=== PATIENT | female | born 1980 | race Caucasian/White ===

== ENCOUNTER 2017-11-21 18:02 | Emergency (ER) | payer OTHER ==
--- OUTSIDE RECORDS SUMMARY | 2017-11-21 21:00 | XMS REPORT ---
:1980 External Reference #:[id number] Author Organization [facility] Address [address] [place] [address] Phone [phone] Care Team Providers Name Role Phone Jose L Simon M.D. Care Team Information Vehicle Inspector Unavailable Payers Type Date Identification Payment Subscriber Numbers Provider Health Maintenance Expires: Policy Number: Naldo Ace [facility] ([facility]) 10/21/2011 [id number] Option PayID: [id number] [address] [address] [place] [address] Health Maintenance Effective: Policy Number: Naldo Pandya [email or web address] ([facility]) 04/20/2012 [id number] Option Malka Expires: 01/18/2016 PayID: [id number] [address] [address] [place] [address] Commercial Effective: Policy Number: Gildardo [facility] Gini Ace 01/20/2016 [id number] Medicaid Expires: 10/20/2016 PayID: [id number] [address] [place] [address] Problems Description No Information Family History Date Family Member(s) Problem(s) Comments Father 62 as of 03/07/2009 Father Hypothyroid Father Obesity Father Hypertension : (age 54 Mother due to Aneurysm cerebral Years) Mother Non Contributory First Son Asthma Second Son Asthma Siblings 7 First Brother Obesity First Brother Kidney Stones Second Brother Obesity First Sister Asthma Paternal Grandfather due to SD () Paternal Grandmother Stroke Maternal Grandfather due to Cancer, () Lung Maternal Grandmother due to SD () - in her 70's, possible ruptured cerebral aneurysm Social History Type Date Description Comments Order Youngest of 6 Lives With Spouse Lives With Sons 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 Abuse No history of abuse Cigarette Use Never Smoked Cigarettes ETOH Use Drinks about twice a year. Exercise Type/Frequency Exercises regularly. Walking at least one with son mile. Some joging, sports Allergies, Adverse Reactions, Alerts Date Description Reaction Status Severity Comments 01/13/2009 Bactrim active rash on legs, itching 03/29/2005 NKDA inactive Medications Medication Date Status Form Strength Qnty SIG Indications Ordering Provider Cephalexin 11/08 Active Capsules 500mg 30cap take 1 N61.0 Isi s capsule by Shortle, mouth 3 [employer] times a day for 10 days for infection Folic Acid 05/22 Active Tablets 1mg 1 po qd Jenn Simon B Complex 05/22 Active Capsules Jenn Simon Dicloxacillin 11/08 Hx Capsules 500mg 40cap Take 1 N61.0 Isi s capsule by Shortle, - mouth every [employer] 11/08 6 hours for 10 days To Whom It February 21 Hx Gini is currently [place], - and Jenn 03/01 has been advised not to travel to an area with Zika virus Meclizine HCL 11/11 Hx Tablets 12.5mg 60tab 1-2 tid prn 386.10 Gary Lo M.D. 01/10 Amoxicillin 10/26 Hx Tablets 875mg 20tab 1 tablet bid s x 10 days Emmett, - [employer]C 11/05 10/01 Hx Tablets 0.8mg 30tab 1 po qd Gary Lo M.D. 11/03 Diflucan 04/16 Hx Tablets 150mg 1tabs 150mg po once, february Madeline Parker, - repeat in [employer] 09/30 one week needed for yeast infection Ceftin 04/13 Hx Tablets 500mg 20tab 1 po bid for 034.0 s 10 days for Madeline Parker, - infection [employer] 09/30 Amoxicillin 03/24 Hx Suspension 250mg/5ML 300cc 10 cc po tid 034.0 Rec for 10 days Saira Chavez, 04/13 M.D. Penicillin V 06/20 Hx Tablets 500mg 30tab 1 po tid for 463 Shawnti Potassium s tonsillitis Madeline Parker, - [employer]-C 06/30 Zithromax 12/29 Hx Tablets 500mg 3Tabs 1 po daily 461.0 Greenwoodnt Tri-Cornel for three Madeline Parker, - days, february [facility] 04/12 repeat in days if not effective Erythromycin 09/24 Hx Ointment 5mg/GM 3.500 apply small 373.12 gm ribbon ou up [place], - to 3x/day M.D. 10/24 (opthalmic oint)x 1 month or until discharge clears Ortho 06/22 Hx Tablets 30tab 1 po qd V72.31 Shawnti Tri-Cyclen s EliaBrandon Parker, - [facility] 09/30 Ortho Micronor 03/07 Hx Tablets 0.35mg 28tab 1 po qd (at V72.31 s the same [place], - time of day) M.D. 06/22 Diflucan 09/06 Hx Tablets 150mg 1tabs 150mg po once, february Madeline Keith, - repeat in [facility]- 04/16 one week needed for yeast infection Violet 08/06 Hx Tablets 3-0.02mg 1Mont Take One V72.31 h Pill PO qd Aurroa, - as Directed M.D. 03/07 Levaquin 04/10 Hx Tablets 500mg 10tab one qd x10 382.02 s days Saira Chavez, 08/06 M.D. /2007 Amoxicillin 04/06 Hx Capsules 500mg 10cap 1 tid X 10 s Days (dose [place], - increase, M.D. 04/10 has for bid already)) Meclizine HCL 04/06 Hx Tablets 12.5mg 30tab 1-2 tid prn s [place] - Hector.DBrandon 07/05 Vicodin 04/06 Hx Tablets 5-500mg 25tab 1/2 - 2 q4h s prn Gary Simon.DBrandon 07/05 Cortisporin 04/03 Hx Suspension 1% Otic 10ml 5 gtts otic tid-qid prn Gary Simon M.DBrandon 07/02 09/26 Hx 30uni 1 po qd (february Multivitamins ts dispense [place], - generic) M.D. 08/06 Keflex 06/04 Hx Capsules 500mg 20cap One PO bid 706.2 Jennie s For 10 Days A. - Jong, 03/18 F.N.P.C. /2006 Amoxicillin 04/11 Hx Tablets 500mg 30tab 1 po tid 461.0 Gary Lo M.D. 07/10 Robitussin A-c 04/11 Hx Syrup 100mg;10m 50cc One TSP PO 461.0 g/5ML QHS prn [place], - Cough, Up To M.D. 07/10 Q 6HRS prn - Causes Drowsiness Lotrisone 11/14 Hx Cream 0.05%;1 % 45gm apply to 692.9 rash bid Gary Simon M.DBrandon 08/06 Lac-Hydrin 11/14 Hx Cream 12% 140gm apply to dry skin qd Gary Simon M.D. 09/24 Ciprofloxacin 11/07 Hx Solution 0.3% 2.5ml 2 gtts Q4H Ophthalmic Gary Simon.DBrandon 12/07 Penicillin VK 09/17 Hx Tablets 500mg 30tab one tablet 462 Patrice J. /2004 s three times Mariee, - daily for M.D. 11/07 ten days. Effexor XR 07/03 Hx Capsules 150mg 30cap 1 po qd Gary Lo M.D. 03/18 Xenical 07/03 Hx Capsules 120mg 90cap 1 po tid s Gary Simon M.D. 10/02 Effexor XR 05/09 Hx Capsules 75mg 30cap 1 po qd belkys Gary SimonDBrandon 07/03 Alesse 28 03/29 Hx Pack 3pack 1 qd V72.31 Gary Simon MBrandonDBrandon 03/18 Triamcinolone 03/29 Hx Cream 0.1% 30G apply to 692.9 affected [place] - area bid M.D. 11/14 Micronor Hx Tablets 0.35mg 1Pack 1 po qd Unknown /0000 - 04/25 Medications Administered in Office Medication Date Status Form Strength Qnty SIG Indications Ordering Provider TB,Intradermal Administered Injection Lab and (PPD, [place]) 013 Office Services TB,Intradermal Administered Injection Lab and (PPD, [place]) 010 Office Services TB,Intradermal Administered Injection Jose L Simon, (PPD, [place]) 009 M.D. TB,Intradermal Administered Injection Jose L Simon, (PPD, [place]) 007 M.D. Immunizations CPT Code Status Date Vaccine Lot # [id number] Given 08/05/2013 Influenza Vaccine-Preservative Free 3 Yrs And [id number] Above 00628 Given 05/28/2013 Tdap (Adacel) 77739 Given 08/12/2012 Influenza Vaccine-Preservative Free 3 Yrs And [id number] Above 20581 Given 08/31/2011 Influenza Vaccine-Preservative Free 3 Yrs And [id number] Above 50886 Given 07/31/2010 Influenza Vaccine-Preservative Free 3 Yrs And Above 62342 Given 07/31/2010 Influenza Vaccine-Preservative Free 3 Yrs And [id number] Above 81024 Given 08/15/2009 Influenza Vaccine-Preservative Free 3 Yrs And [id number] Above 21998 Given 08/06/2008 Influenza Virus Vaccine, 3 Yrs And Above [id number] 50327 Given 09/04/2007 Influenza Virus Vaccine, 3 Yrs And Above [id number] 69316 Given 03/29/2005 Decavac(DT, Adult) 23767 Given 03/29/2005 DT (Adult) Vital Signs Date Vital Result Comment 11/08/2017 Weight 233.00 lb Weight in kg's 105.689 BP Systolic 110 mmHg BP Diastolic 70 mmHg Heart Rate 80 /min Body Temperature 97.6 F Respiratory Rate 14 /min 04/09/2016 Weight 216.00 lb Weight in kg's 97.978 BP Systolic 110 mmHg BP Diastolic 58 mmHg Heart Rate 68 /min 11/11/2013 Weight 216.00 lb Weight in kg's 97.978 BP Systolic 120 mmHg BP Diastolic 68 mmHg Heart Rate 84 /min Body Temperature 97.7 F 11/05/2013 Weight 214.00 lb Weight in kg's 97.070 BP Systolic 122 mmHg BP Diastolic 76 mmHg Heart Rate 72 /min Height 66.5 inches 5'6.50" BMI (Body Mass Index) 34.0 kg/m2 10/26/2013 Weight 217.00 lb Weight in kg's 98.431 BP Systolic 100 mmHg BP Diastolic 66 mmHg Heart Rate 88 /min Body Temperature 97.7 F 10/01/2012 Weight 209.00 lb Weight in kg's 94.802 BP Systolic 112 mmHg BP Diastolic 76 mmHg Heart Rate 76 /min 04/13/2011 Weight 182.00 lb Weight in kg's 82.555 BP Systolic 130 mmHg BP Diastolic 70 mmHg Heart Rate 64 /min Body Temperature 97.7 F 03/24/2011 Weight 180.00 lb Weight in kg's 81.648 BP Systolic 90 mmHg BP Diastolic 70 mmHg Heart Rate 98 /min Body Temperature 97.2 F 06/20/2010 Weight 185.00 lb Weight in kg's 83.916 BP Systolic 114 mmHg BP Diastolic 74 mmHg Heart Rate 80 /min Body Temperature 98.9 F 12/29/2009 Weight 198.00 lb Weight in kg's 89.813 BP Systolic 110 mmHg BP Diastolic 74 mmHg Heart Rate 60 /min Body Temperature 97.9 F O2 % BldC Oximetry 98 % At Room Air 09/24/2009 Weight 185.00 lb Weight in kg's 83.916 BP Systolic 114 mmHg BP Diastolic 80 mmHg Heart Rate 76 /min 06/22/2009 Weight 178.00 lb Weight in kg's 80.741 BP Systolic 110 mmHg BP Diastolic 70 mmHg Heart Rate 76 /min Respiratory Rate 18 /min 05/03/2009 Weight 177.00 lb Weight in kg's 80.287 BP Systolic 100 mmHg BP Diastolic 62 mmHg Heart Rate 68 /min Last Menstrual Period [id number] 01/13/2009 Weight 180.00 lb Weight in kg's 81.648 BP Systolic 110 mmHg BP Diastolic 74 mmHg Heart Rate 76 /min 11/18/2008 BP Systolic 122 mmHg BP Diastolic 80 mmHg Heart Rate 78 /min Body Temperature 97.4 F 09/06/2008 Weight 198.00 lb Weight in kg's 89.813 BP Systolic 106 mmHg BP Diastolic 64 mmHg Heart Rate 72 /min Height 66.5 inches 5'6.50" BMI (Body Mass Index) 31.5 kg/m2 08/06/2008 Weight 210.00 lb Weight in kg's 95.256 BP Systolic 120 mmHg BP Diastolic 70 mmHg Heart Rate 64 /min Height 66.5 inches 5'6.50" BMI (Body Mass Index) 33.4 kg/m2 Last Menstrual Period [id number] 04/10/2008 Weight 215.00 lb Weight in kg's 97.524 BP Systolic 112 mmHg BP Diastolic 64 mmHg Body Temperature 98.1 F Height 66.3 inches 5'6.30" BMI (Body Mass Index) 34.4 kg/m2 04/06/2008 Weight 212.00 lb Weight in kg's 96.163 BP Systolic 120 mmHg BP Diastolic 74 mmHg Heart Rate 76 /min Body Temperature 98.7 F Height 66.3 inches 5'6.30" BMI (Body Mass Index) 33.9 kg/m2 04/03/2008 Weight 214.00 lb Weight in kg's 97.070 BP Systolic 104 mmHg BP Diastolic 70 mmHg Heart Rate 56 /min Body Temperature 97.9 F Height 66.3 inches 5'6.30" BMI (Body Mass Index) 34.2 kg/m2 01/16/2008 Weight 208.00 lb Weight in kg's 94.349 BP Systolic 120 mmHg BP Diastolic 84 mmHg Heart Rate 82 /min Body Temperature 98.6 F Height 66.3 inches 5'6.30" BMI (Body Mass Index) 33.3 kg/m2 01/01/2008 Weight 210.00 lb Weight in kg's 95.256 BP Systolic 120 mmHg BP Diastolic 60 mmHg Body Temperature 98.6 F Height 66.3 inches 5'6.30" BMI (Body Mass Index) 33.6 kg/m2 05/31/2007 BP Systolic 118 mmHg BP Diastolic 70 mmHg Heart Rate 60 /min Body Temperature 98.7 F Oral Height 66.3 inches 5'6.30" 03/14/2007 Weight 208.00 lb Weight in kg's 94.349 BP Systolic 130 mmHg BP Diastolic 60 mmHg Heart Rate 80 /min Body Temperature 97.6 F Height 66.3 inches 5'6.30" BMI (Body Mass Index) 33.3 kg/m2 06/04/2006 Weight 186.00 lb Weight in kg's 84.370 BP Systolic 98 mmHg BP Diastolic 64 mmHg Body Temperature 98.2 F Height 66.3 inches 5'6.30" BMI (Body Mass Index) 29.7 kg/m2 04/11/2006 Weight 191.00 lb Weight in kg's 86.638 BP Systolic 110 mmHg BP Diastolic 68 mmHg Heart Rate 64 /min Body Temperature 97.4 F Height 66.3 inches 5'6.30" BMI (Body Mass Index) 30.5 kg/m2 03/27/2006 Weight 190.31 lb Weight in kg's 86.326 BP Systolic 108 mmHg BP Diastolic 70 mmHg Height 66.3 inches 5'6.30" BMI (Body Mass Index) 30.4 kg/m2 03/07/2006 Weight 194.00 lb Weight in kg's 87.998 BP Systolic 124 mmHg BP Diastolic 64 mmHg Height 66.3 inches 5'6.30" BMI (Body Mass Index) 31.0 kg/m2 02/07/2006 Weight 193.00 lb Weight in kg's 87.545 BP Systolic 120 mmHg BP Diastolic 80 mmHg Body Temperature 98.6 F Height 66.3 inches 5'6.30" BMI (Body Mass Index) 30.9 kg/m2 01/01/2006 Weight 195.00 lb Weight in kg's 88.452 BP Systolic 110 mmHg BP Diastolic 74 mmHg Height 66.3 inches 5'6.30" BMI (Body Mass Index) 31.2 kg/m2 11/14/2005 Weight 203.00 lb Weight in kg's 92.081 BP Systolic 118 mmHg BP Diastolic 88 mmHg Heart Rate 71 /min Height 66.3 inches 5'6.30" BMI (Body Mass Index) 32.5 kg/m2 11/07/2005 Weight 204.00 lb Weight in kg's 92.534 BP Systolic 118 mmHg BP Diastolic 70 mmHg Heart Rate 78 /min Height 66.3 inches 5'6.30" BMI (Body Mass Index) 32.6 kg/m2 10/02/2005 Weight 205.00 lb Weight in kg's 92.988 BP Systolic 122 mmHg BP Diastolic 76 mmHg Heart Rate 84 /min Height 66.3 inches 5'6.30" BMI (Body Mass Index) 32.8 kg/m2 Last Menstrual Period [id number] 09/17/2005 Weight 205.00 lb Weight in kg's 92.988 BP Systolic 112 mmHg BP Diastolic 76 mmHg Body Temperature 99.8 F Height 66.3 inches 5'6.30" BMI (Body Mass Index) 32.8 kg/m2 08/01/2005 Weight 209.00 lb Weight in kg's 94.802 BP Systolic 128 mmHg BP Diastolic 80 mmHg Heart Rate 80 /min Height 66.3 inches 5'6.30" BMI (Body Mass Index) 33.4 kg/m2 07/03/2005 Weight 206.00 lb Weight in kg's 93.442 BP Systolic 102 mmHg BP Diastolic 64 mmHg Height 66.3 inches 5'6.30" BMI (Body Mass Index) 32.9 kg/m2 06/06/2005 Weight 205.00 lb Weight in kg's 92.988 BP Systolic 128 mmHg BP Diastolic 80 mmHg Heart Rate 84 /min Height 66.3 inches 5'6.30" BMI (Body Mass Index) 32.8 kg/m2 05/09/2005 Weight 208.00 lb Weight in kg's 94.349 BP Systolic 130 mmHg BP Diastolic 80 mmHg Heart Rate 80 /min Height 66.3 inches 5'6.30" BMI (Body Mass Index) 33.3 kg/m2 04/25/2005 Weight 213.00 lb Weight in kg's 96.617 BP Systolic 112 mmHg BP Diastolic 64 mmHg Height 66.3 inches 5'6.30" BMI (Body Mass Index) 34.1 kg/m2 03/29/2005 Weight 211.00 lb Weight in kg's 95.710 BP Systolic 118 mmHg BP Diastolic 80 mmHg Heart Rate 72 /min Respiratory Rate 18 /min Height 66.3 inches 5'6.30" BMI (Body Mass Index) 33.7 kg/m2 Results Test Date Test Result H/L Range Note Laboratory test 04/09/2016 Culture Throat SEE RESULT BELOW 1 finding Laboratory test 04/09/2016 Strep Screen NEG Neg finding Laboratory test 06/01/2013 Rubella Screen Equivocal Immune finding Mumps Igg 06/01/2013 Mumps Virus IgG Positive 2 Antibody Mumps IgG Antibody Index 3.0 3 Rubeola Measles Igg AB 06/01/2013 Rubeola (Measles) IgG Antibody Positive 4 Rubeola IgG Antibody Index 1.1 5 Varicella Zoster Igg AB 06/01/2013 Varicella-Zoster IgG Antibody Positive 6 Varicella IgG Antibody Index 3.2 7 Cytology 11/03/2012 Cy RUN DATE: <SEE NOTE> GC/Chlamydia Amplified 11/03/2012 GC/Chlamydia Rna (SEE NOTE) 9 Rna Human Papilloma Virus 11/03/2012 Human Papillomavirus CERV Source Human Papillomavirus High Risk Negative Negative 10 Laboratory test finding 10/01/2012 HCG DIP Test POS Neg Laboratory test finding 04/13/2011 Throat Culture Full NF 11 Laboratory test finding 04/13/2011 Strep Screen NEG Neg Laboratory test finding 06/20/2010 Strep Screen neg Neg HCG Qualitative Stat 06/17/2009 Serum Qual HCG NEGATIVE Negative 12 Comp Metabolic Panel 06/17/2009 Sodium 138 mmol/L 135-145 Potassium 3.2 mmol/L Low 3.5-5.0 Chloride 107 mmol/L 101-111 Co2 (Carbon Dioxide) 24.0 mmol/L 22-32 Anion Gap 7.0 mmol/L 2-11 13 Glucose 93 mg/dL 70-100 14 BUN 3 mg/dL Low 6-24 Creatinine 0.70 mg/dL 0.50-1.40 One Over Creatinine 1.40 BUN/Creatinine Ratio 4.3 Low 8-20 Calcium 8.4 mg/dL 8.1-9.9 15 Total Protein 5.9 GM/DL Low 6.2-8.1 Albumin 3.5 GM/DL Low 3.6-5.4 Globulin 2.4 GM/DL 2-4 Albumin/Globulin Ratio 1.5 1-3 Bilirubin Total 1.0 mg/dL 0.4-1.5 16 Alkaline Phosphatase 57 U/L 30-110 Alt (SGPT) 21 U/L 14-54 Ast (Sgot) 29 U/L 12-42 eGFR Non- 105.1 > 60 eGFR 127.2 > 60 17 Urinalysis W/Microscopic 06/17/2009 Ua Color YELLOW Appearance-Urine CLEAR Specific [place]-Ur 1.005 Low 1.010-1.030 Esterase-Urine NEGATIVE Negative Nitrite NEGATIVE Negative Loaxlxwkejni-Kn-EAA NEGATIVE Negative Protein-Urine NEGATIVE Negative PH-Urine 6.0 5-9 Blood-Urine 2+ Negative Ketones-Urine NEGATIVE Negative Bilirubin-Ur NEGATIVE Negative Glucose-Urine NEGATIVE Negative WBC-Urine 0-2 0-5 RBC-Urine 3-5 0-2 Epith Cells-Ur FEW Bacteria-Urine 1+ Amorphous Sed-U TRACE CBC With Electronic Diff 06/17/2009 White Blood Count 7.4 CUMM 4.8-10.8 Red Cell Count 4.11 CUMM Low 4.2-5.4 Hemoglobin 12.5 g/dL 12.0-16.0 Hematocrit 36 % 35-47 Mean Corpuscular Volume 88 um3 79-97 Mean Corpuscular Hemoglob 31 pg 27-31 Mean Corpuscular HGB Cone 35 g/dL 32-36 Redcell Distribution WDTH 13 % 10.5-15 Platelet Count 150 CUMM 150-450 Mean Platelet Volume 7.3 um3 Low 7.4-10.4 Gran % 86.2 % High 38-83 Lymph % 5.4 % Low 25-47 Mononuclear % 8.1 % 1-9 Eosinophil % 0 % 0-6 Basophil % 0.3 % 0-2 Abs Lymphs 0.4 Low 1.0-4.8 Abs Mononuclear 0.6 0-0.8 Absolute Neutrophil Count 6.4 1.5-7.7 Abs Eosinophils 0 0-0.6 Abs Basophils 0 0-0.2 18 Urinalysis Stat 06/17/2009 Ua Color YELLOW Appearance-Urine CLEAR Specific [place]-Ur 1.005 Low 1.010-1.030 Esterase-Urine NEGATIVE Negative Nitrite NEGATIVE Negative Mtwfwmpoqlav-Lk-RLV NEGATIVE Negative Protein-Urine NEGATIVE Negative PH-Urine 6.0 5-9 Blood-Urine 2+ Negative Ketones-Urine NEGATIVE Negative Bilirubin-Ur NEGATIVE Negative Glucose-Urine NEGATIVE Negative Anaerobic Culture 06/17/2009 Anaerobic Culture NG5 19, 20 Bottle Bottle Aerobic Culture 06/17/2009 Aerobic Culture NG5 19, 21 Bottle Bottle Anaerobic Culture 06/17/2009 Anaerobic Culture NG5 22 Bottle Bottle Aerobic Culture 06/17/2009 Aerobic Culture NG5 23 Bottle Bottle Laboratory test 06/17/2009 O P: Giardia and cryp 24, 25 finding Giardia/Crypto <SEE NOTE> Screen C. Difficile Toxin 06/17/2009 C. Difficile Toxin TEST LIMITATIONS 24, 26 A B <SEE NOTE> CBC With Manual 05/27/2009 White Blood Count 5.4 CUMM 4.8-10.8 Diff Red Cell Count 4.42 CUMM 4.2-5.4 Hemoglobin 13.4 g/dL 12.0-16.0 Hematocrit 40 % 35-47 Mean Corpuscular Volume 90 um3 79-97 Mean Corpuscular Hemoglob 30 pg 27-31 Mean Corpuscular HGB Cone 34 g/dL 32-36 Redcell Distribution WDTH 14 % 10.5-15 Platelet Count 238 CUMM 150-450 Mean Platelet Volume 8.4 um3 7.4-10.4 Polysegmented Neutrophil 61 % 38-83 Band Neutrophil 1 % 0-8 Lymphocyte 28 % 25-47 Monocyte 2 % 0-13 Eosenophil 2 % 0-6 Atypical Lymph 6 % 0-6 Absolute Neutrophil Count 3.3 Anisocytosis SLIGHT Polychromasia SLIGHT Comp Metabolic Panel 05/27/2009 Sodium 138 mmol/L 135-145 Potassium 4.5 mmol/L 3.5-5.0 Chloride 104 mmol/L 101-111 Co2 (Carbon Dioxide) 28.0 mmol/L 22-32 Anion Gap 6.0 mmol/L 2-11 27 Glucose 69 mg/dL Low 70-100 28 BUN 12 mg/dL 6-24 Creatinine 0.70 mg/dL 0.50-1.40 One Over Creatinine 1.40 BUN/Creatinine Ratio 17.1 8-20 Calcium 9.1 mg/dL 8.1-9.9 29 Total Protein 6.2 GM/DL 6.2-8.1 Albumin 3.8 GM/DL 3.6-5.4 Globulin 2.4 GM/DL 2-4 Albumin/Globulin Ratio 1.6 1-3 Bilirubin Total 1.2 mg/dL 0.4-1.5 30 Alkaline Phosphatase 57 U/L 30-110 Alt (SGPT) 15 U/L 14-54 Ast (Sgot) 16 U/L 12-42 eGFR Non- 105.1 > 60 eGFR 127.2 > 60 31 Laboratory test finding 05/27/2009 TSH 0.93 MIU/ML 0.34-5.60 Prolactin 6.47 NG/ML 1.0-25.0 Laboratory test finding 03/09/2009 Homocysteine 13 umol/L () 32 Urine DIP 01/13/2009 Leukocytes NEG Neg Urine Nitrites NEG Neg Urine pH 5 5-6 Total Protein, Urine NEG Neg Urine Glucose NORM Norm Urine Ketones NGE Neg Urobilinogen NOMR Norm Urine Bilirubin NEG Neg Urine Blood NEG Neg Specific [place] NA Low 1.01-1.02 Laboratory test finding 11/22/2008 Fasting Urine Glucose NEGATIVE Negative 33 Fasting Glucose 83 mg/dL 70-110 33 1HR Glucose 73 mg/dL 33, 34 2HR Glucose 88 mg/dL 33, 35 Laboratory test finding 11/18/2008 Glucose By Moniter 69 Low 78-110 Urine Culture Sensitivi 10/09/2008 Urine Culture Sensitivi NG 36 Urine DIP 08/06/2008 Leukocytes neg Neg Urine Nitrites neg Neg Urine pH 5 5-6 Total Protein, Urine neg Neg Urine Glucose norm Norm Urine Ketones neg Neg Urobilinogen norm Norm Urine Bilirubin neg Neg Urine Blood neg Neg Specific [place] n/a Low 1.01-1.02 Lipid Profile (Trig/Chol/HDL) 08/06/2008 Triglyceride 248 mg/dL High 40- 200 Cholesterol 129 mg/dL Less Than 200 37 High Density Lipoprotein 38 mg/dL Low 40-60 38 Cholesterol/HDL Ratio 3.39 AVERAGE 1-4.44 Low Density Lipoprotein 41 mg/dL Less Than 100 39 Laboratory test 08/06/2008 Cytology <SEE 40 finding NOTE> Laboratory test 08/06/2008 TSH 0.94 MIU/ML 0.34-5.6 finding 0 Laboratory test 01/16/2008 Flu Test A&B, NEG finding Quickvue Strep Screen NEG Neg Urine DIP 01/01/2008 Leukocytes neg Neg Urine Nitrites neg Neg Urine pH 5 5-6 Total Protein, Urine neg Neg Urine Glucose norm Norm Urine Ketones neg Neg Urobilinogen norm Norm Urine Bilirubin neg Neg Urine Blood neg Neg Specific [place] n/a Low 1.01-1.02 Laboratory test finding 05/31/2007 Strep Screen NEG Neg Laboratory test finding 09/26/2006 HCG DIP Test pos Neg Laboratory test finding 10/02/2005 Thinprep W/HPV REC'D-SEE IAMGE JOSE ROBERTO/Acus/LGSIL Laboratory test finding 09/17/2005 Strep Screen pos Neg Hepatic (Liver) Panel 08/01/2005 Albumin 4.4 g/dL 3.5-4.7 Protein, Total 7.2 g/dL 6.4-8.2 Alkaline Phosphatase 101 U/L 10-118 Sgot (Ast) 17 U/L 3-30 SGPT (Alt) 14 U/L 7-40 Bilirubin, Total 0.56 mg/dL 0.30-1.20 Bilirubin, Direct 0.17 mg/dL 0.00-0.40 Bilirubin, Indirect 0.39 mg/dL 0.10-1.10 Laboratory test finding 08/01/2005 Gamma gt 14 U/L 5-71 Lipid Profile 03/29/2005 Cholesterol, Total 156 mg/dL 120-200 41, 42 HDL Cholesterol 38 mg/dL Low 40-60 41 LDL Cholesterol, Calc. 94 mg/dL 41, 43 Triglycerides 121 mg/dL 41, 44 LDL/HDL Cholesterol 2.5 41, 45 .Chol/HDL Cholesterol 4.1 41, 46 Laboratory test finding 03/29/2005 TSH (Thyrotropin) 0.820 uIU/ml 0.350- 5.500 41 Comprehensive Metabolic 03/29/2005 Glucose 91 mg/dL 61-110 41 BUN 14 mg/dL 4-18 41 Creatinine, Serum 1.0 mg/dL 0.5-1.2 41 Sodium 140 mmol/L 136-146 41 Potassium 4.5 mmol/L 3.5-5.3 41 Chloride 105 mmol/L 98-110 41, 47 Carbon Dioxide 26 mmol/L 20-32 41 Albumin 4.4 g/dL 3.5-4.7 41 Protein, Total 7.6 g/dL 6.4-8.2 41 Calcium 9.8 mg/dL 8.4-10.6 41 Alkaline Phosphatase 122 U/L High 10-118 41 Sgot (Ast) 17 U/L 3-30 41 SGPT (Alt) 14 U/L 7-40 41 Bilirubin, Total 0.74 mg/dL 0.30-1.20 41 CBC 03/29/2005 WBC 5.7 x103 4.3-10.9 41 RBC 4.96 x106 3.80-5.30 41 Hemoglobin 14.9 g/dL 11.8-15.8 41 Hematocrit 44.2 % 35.0-47.0 41 MCV 89.0 fl 82.0-98.0 41 MCH 30.1 pg 27.5-33.5 41 MCHC 33.8 g/dL 32.0-36.0 41 RDW 12.8 % 11.5-14.5 41 Platelet Count 316 x103 130-400 41 MPV 8.2 fl 6.5-10.5 41 Segmented Neutrophils 71.8 % 44.0-74.0 41 Lymphocytes 19.4 % 15.0-45.0 41 Monocytes 6.6 % 2.0-13.0 41 Eosinophils 1.9 % 0.0-6.0 41 Basophils 0.3 % 0.0-2.0 41 Neutrophil Absolute 4.1 x103 1.4-7.0 41 Lymphocytes Absolute 1.1 x103 1.0-3.4 41 Monocyte Absolute 0.4 x103 0.2-1.0 41 Eosinophil Absolute 0.1 x103 0.0-0.5 41 Basophil Absolute 0.0 x103 0.0-0.2 41 Laboratory test 03/29/2005 GFR (Calculated) >60 41, 48 finding Laboratory test 03/29/2005 Thinprep W/HPV REC'D -SEE IMAGE finding JOSE ROBERTO/Acus/LGSIL Urine DIP 03/29/2005 Leukocytes NEG Neg Urine Nitrites NEG Neg Urine pH 5 5-6 Total Protein, Urine NL Neg Urine Glucose NL Norm Urine Ketones NL Neg Urobolinogen NL Norm Urine Bilirubin NL Neg Urine Blood NL Neg Specific [place] N/A Low 1.01-1.02 1 SEE RESULT BELOW Name: GINI ACE : [address]: Michele Oseguera MD Acct: [id number] Unit: [id number] AGE: 35 Location: [facility] Re04/09/16 SEX: F Status: REG REF SPEC: [id number] ENRRIQUE: 04/09/16-[address]: Michele Oseguera MD REQ: [id number] RECD: 04/09/16 STATUS: COMP _ SOURCE: THROAT SPDESC: ORDERED: Throat Culture COMMENTS: [facility] [id number] Procedure Result Reported Site Throat Culture Final 04/11/16- 1200 ML Organism 1 NORMAL NNAMDI Quantity 2+ Throat cultures are clinically indicated to detect the presence of group A strep, arcanobacterium and yeast. In certain cases, predominating organisms will be reported. * ML - MAIN LAB ([facility]) . END OF REPORT * ML=Testing performed at Main Lab DEPARTMENT OF PATHOLOGY, [address], [place], [place] [address] Karlo Asencio M.D. Director [facility] # [id number] 2 Results suggest response to immunization or prior exposure to the virus. -- REFERENCE VALUE -- Vaccinated: Positive Unvaccinated: Negative 3 Test Performed by: [place] [address] Pipe Fitter Ammonia: Curtis Knox III, M.D. 4 Results suggest response to immunization or prior exposure to the virus. -- REFERENCE VALUE -- Vaccinated: Positive Unvaccinated: Negative 5 Test Performed by: [place] [address] Pipe Fitter Ammonia: Curtis Knox III, M.D. 6 Results suggest response to immunization or prior exposure to the virus. -- REFERENCE VALUE -- Vaccinated: Positive Unvaccinated: Negative 7 Test Performed by: [place] [address] Pipe Fitter Ammonia: Curtis Knox III, M.D. 8 RUN DATE: 11/07/12 [facility] LAB LIVE PAGE 1 RUN TIME: [address] [place] [address] Specimen Inquiry Name: GINI ACE : [address]: Bianca VAZQUEZ,Anthony Lombardi Acct: [id number] Unit: [id number] AGE: 32 Location: [facility] Re11/03/12 SEX: F Status: REG REF SPEC: [id number] ENRRIQUE: 11/03/[address]: Bianca VAZQUEZAnthony Lombardi REQ: [id number] RECD: 11/03/121438 STATUS: BLANCHE SANTIAGO DR: Aurora VAZQUEZ,Jose L _ ORDERED: IMAGE ANALYSIS, HPV / Thin Prep HiRisk Human Papilloma Virus test results received with preparation and diagnosis completed by [facility], [place], [place]. Results: NEGATIVE High Risk (for types 16, 18, 31, 33, 35, 39, 45, 51, 52, 56, 58, 59, 68) Jibe Hybrid Capture Specimen Transport Media or [employer] ThinPrep PapTest PreservCyt Solution are the collection systems approved for use with this method by the U.S. Food and Drug Administration. Performance characteristics for AutoCdot429 (CIVICO) collection device have been determined by Laboratory Medicine and Pathology , [facility], [place], [place]. It has not been cleared or approved by the U.S. Food and Drug Administration. Test Performed by: [facility] Dpt of lab Med and Pathology [address] [place] [address] Pipe Fitter Ammonia: Curtis Knox III, M.D. Original hard copy report from [facility] is available upon request by calling Pathology at [phone]. Addendum Signed (signature on file) JUANA Naranjo (ASCP) 11/07/12 0817 FINAL DIAGNOSIS Negative for Intraepithelial lesion or Malignancy COMMENTS: Specimen sent to [facility] in [place], [place] on 11/04/12. Results will be reported separately in an Addendum. A. Ectocervical/Endocervical Specimen Adequacy: CONTINUED ON NEXT PAGE * ML=Testing performed at Main Lab DEPARTMENT OF PATHOLOGY, [address] [place] [address] Karlo Asencio M.D. Director [facility] Permit #[id number] RUN DATE: 11/07/12 [facility] LAB LIVE PAGE 2 RUN TIME: [address] [place] [address] Specimen Inquiry Patient: GINI ACE [id number] (Continued) CYTOLOGY ADEQ (Continued) Satisfactory of evaluation Transformation zone component identified Patient Information: HPV: High risk HPV DNA testing regardless of pap results. Actual Specimen Date: 11/03/12 Last Menstrual Date: 08/25/12 Cautery: N IUD: N Lesion, grossly demonstrate: N Radiation Y/N? N ?: Y Post Menopausal?: N Hysterectomy?: N Previous Abnormal Pap Smears?:N Signed (signature on file) JUANA English (ASCP) 11/04 1201 This Pap test was evaluated with the assistance of the [employer] Test Imaging System. Due to cytologic findings at the intervention manager microscope, comprehensive manual rescreening by a Rotary Lithographic Press Operator may be required. The Pap Smear is a screening test designed to aid in the detection of premalignant and malignant conditions of the uterine cervix. It is not a diagnostic procedure and should not be used as the sole means of detecting cervical cancer. Both false- positive and false- negative reports do occur. Depending on your risk status, a Pap smear shoudl be obtained and evaluated every 1-3 years. END OF REPORT * ML=Testing performed at Main Lab DEPARTMENT OF PATHOLOGY, [facility] [place], [place] [address] Karlo Asencio M.D. Director [facility] Permit #[id number] RUN DATE: 11/04/12 [facility] LAB LIVE PAGE 1 RUN TIME: 1314 [facility] [place], [place] [address] Specimen Inquiry Name: GINI ACE : [address]: Anthony Valenzuela MD Acct: [id number] Unit: [id number] AGE: 32 Location: [facility] Re11/03/12 SEX: F Status: REG REF SPEC: [id number] ENRRIQUE: 11/03/[address] [facility] [address]: Bianca VAZQUEZ Anthony Lombardi REQ: [id number] RECD: 11/03/12 STATUS: LEON SANTIAGO DR: Aurora VAZQUEZ,Jose L Koroma SOURCE: [facility]: ORDERED: GC/Chlam RNA Procedure Result Verified Site Chlamydia Trachomatis RNA Final 11/04/12- 1314 ML NEGATIVE for Chlamydia trachomatis rRNA GC (N. gonorrhoeae) RNA Final 11/04/12- 1314 ML NEGATIVE for Neisseria gonorrhoeae rRNA A negative result does not preclude the presence of a C. trachomatis or N. gonorrhoeae infection because results are dependent on adequate specimen collection, absence of inhibitors, and sufficient rRNA to be detected. Test results may be affected by improper specimen collection, improper storage, technical error, or specimen mixup. Limitations of the Procedure: The Aptima Combo 2 Assay is not intended for the evaluation of suspected sexual abuse or for other medico-legal indications. For those patients for whom a false positive result may have adverse psychosocial impact, the [facility] recommends retesting by a method using an alternate technology. Therapeutic failure or success cannot be determined with the Aptima Combo 2 Assay since nucleic acid may persist following appropriate antimicrobial therapy. Results from the Aptima Combo 2 Assay should be interpreted in conjunction with other laboratory and clinical data available to the clinican. Performance characteristics for detecting C. trachomatis and CONTINUED ON NEXT PAGE * ML=Testing performed at Main Lab DEPARTMENT OF PATHOLOGY, [facility] [place], [place] [address] Karlo Asencio M.D. Director [facility] Permit #[id number] RUN DATE: 11/04/12 [facility] LAB LIVE PAGE 2 RUN TIME: 1314 [facility] [place], [place] [address] Specimen Inquiry Patient: GINI ACE [id number] (Continued) Specimen: [id number] Collected: 11/03/12 Received: 11/03/12-1339 (Continued) Procedure Result Verified Site GC (N. gonorrhoeae) RNA Final (continued) 11/04/12- 4 N. gonorrhoeae are derived from high prevalence populations. Positive results in low prevalence populations should be interpreted carefully with the understanding that the likelihood of a false positive may be higher than a true positive. END OF REPORT * ML=Testing performed at Main Lab DEPARTMENT OF PATHOLOGY, [address] [place] [address] Karlo Asencio M.D. Director [facility] Permit #[id number] 10 For types 16, 18, 31, 33, 35, 39, 45, 51, 52, 56, 58, 59 and 68. Test Performed by: [address] [address] Pipe Fitter Ammonia: Curtis Knox III, M.D. 11 NORMAL THROAT NNAMDI 12 If is still suspected, please repeat test after 48 to 72 hours. . 13 Anion gap measurement may be of limited value in the presence of any alkalosis, especially in a combined acid base disorder. . 14 Note change in reference range as of 06/10/08. The change was based on recommendations from the [place] [employer]. 15 Please note change in reference range effective 08 . 16 A metabolite of Naproxen, O-desmethylnaproxen, has been shown to interfere with the Yojana- method for measuring total bilirubin. Samples from patients who have taken Naproxen have shown spurious elevation in total bilirubin levels. 17 Because ethnic data is not always readily available, this report includes an eGFR for both -Americans and non- Americans. The National Kidney Disease Education Program (NKDEP) does not endorse the use of the MDRD equation for patients that are not between the ages of 18 and 70, are , have extremes of body size, muscle mass, or nutritional status, or are non- or non-. According to the National Kidney Foundation, irrespective of diagnosis, the stage of the disease is based on the level of kidney function: Stage Description GFR(mL/min/1.73 m(2)) 1 Kidney damage with normal or decreased GFR 90 2 Kidney damage with mild decrease in GFR 60-89 3 Moderate decrease in GFR 30-59 4 Severe decrease in GFR 15-29 5 Kidney failure <15 (or dialysis) 18 Neutrophilia % Lymphopenia % 19 COMMENTS? X 2 20 NO GROWTH AFTER 5 DAYS 21 NO GROWTH AFTER 5 DAYS 22 NO GROWTH AFTER 5 DAYS 23 NO GROWTH AFTER 5 DAYS 24 VERBAL TO BY EUGENIA at 1508 on 06/20/09. Results read back accurately. RESULTS SENT TO [facility] INFECTION CONTROL NURSE ON 06/20/09 AT 1508 BY EUGENIA. 25 Giardia and cryptosporidium antigen testing performed by immunoassay. If patient is immunocompromised or has traveled to or is from a developing country, a full ova and parasite exam with microscopic (OPMIC) is recommended. All samples will be held one month in case full ova and parasite testing is requested. Contact the Microbiology Department at [phone]. TEST LIMITATIONS: As with all diagnostic procedures, the results obtained should be used in conjunction with other clinical information available the physician. Negative results can occur in samples containing antigen below lower limits of detection of the assay. The use of colonic washes, aspirates or other diluted sample types has not been established and could affect the performance of the assay. Stool samples contaminated with an oily or particulate base (eg. Barium, mineral oil etc.) could interfere with the test and are not recommended. P^POSITIVE BY IMMUNOASSAY^CRY N^NEGATIVE BY IMMUNOASSAY^SORAIDA 26 TEST LIMITATIONS: The performance of specimens from pediatric patients has not been evaluated. A positive test confirms the presence of toxins A and/or B only. A physician must use the test results in conjunction with other diagnostic procedures and the patient's clinical condition to establish a diagnosis of C.difficile-associated disease. Isolates of C. sordellii may react with this test due to immunological identitiy of the C. sordellii toxins. Two distinct groups have been identified that can harbor C. difficile asymptomatically at very high rates. Colonization rates of up to 50% and higher have been reported in infants and rates of up to 32% in cystic fibrosis patients. N^NEGATIVE BY IMMUNOASSAY^CDT 27 Anion gap measurement may be of limited value in the presence of any alkalosis, especially in a combined acid base disorder. . 28 Note change in reference range as of 06/10/08. The change was based on recommendations from the [place] [employer]. 29 Please note change in reference range effective 08 . 30 A metabolite of Naproxen, O-desmethylnaproxen, has been shown to interfere with the Jendrassik-German method for measuring total bilirubin. Samples from patients who have taken Naproxen have shown spurious elevation in total bilirubin levels. 31 Because ethnic data is not always readily available, this report includes an eGFR for both -Americans and non- Americans. The National Kidney Disease Education Program (NKDEP) does not endorse the use of the MDRD equation for patients that are not between the ages of 18 and 70, are , have extremes of body size, muscle mass, or nutritional status, or are non- or non-. According to the National Kidney Foundation, irrespective of diagnosis, the stage of the disease is based on the level of kidney function: Stage Description GFR(mL/min/1.73 m(2)) 1 Kidney damage with normal or decreased GFR 90 2 Kidney damage with mild decrease in GFR 60-89 3 Moderate decrease in GFR 30-59 4 Severe decrease in GFR 15-29 5 Kidney failure <15 (or dialysis) 32 -- REFERENCE VALUE -- <=13 (Fasting) Test Performed by: [facility] Dpt of Lab Med and Pathology [address] [place] [address] Pipe Fitter Ammonia: Curtis Knox III, M.D. 33 2HR GTT FAST URINE FSTNG URINE GLU from [id number]. 34 REFERENCE RANGE: 20-50 MG/DL ABOVE FASTING 35 REFERENCE RANGE: 5-15 MG/DL ABOVE FASTING 36 FINAL: NO GROWTH DAY 2 (<1,000 CFU/mL) 37 CHOLESTEROL INTERPRETATION: Desirable: Less than 200 MG/DL Borderline-High Risk: 200-239 MG/DL High-Risk: 240 MG/DL and over 38 HDL INTERPRETATION: Undesirable: High Risk: Less than 40 MG/DL Desirable: Low Risk: Greater than 60 MG/DL 39 LDL INTERPRETATION: Low Risk Optimal Level: LDL Less than 100 MG/DL Near or Above Optimal: LDL 100-129 MG/DL Borderline High Risk: LDL 130-159 MG/DL High Risk: LDL 160-189 MG/DL Very High Risk: LDL Greater than 189 MG/DL 40 ---- RUN DATE: 08/09/08 [facility] NMI LIVE PAGE 1 RUN TIME: 1253 Specimen Inquiry RUN USER: INTERFACE -- Name: GINI ACE Accana#: [id number] Status: REG REF Re08/06/08 Age/Sex: 28/F Unit#: [id number] Location: [facility] : 78 -- Specimen: [id number] SOUT Spec Date: 08/06/[address]: Nancy morgan NP Spec Type: CYTOLOGY Received: 08/09/089761 Copies to: SOURCE ECTOCERVICAL/ENDOCERVICAL Thin Prep with Reflex HPV Test PATIENT INFORMATION ACTUAL COLLECTION DATE: 08/06/08 LAST MENSTRUAL PERIOD: 07/17/08 ADEQUACY OF SPECIMEN Satisfactory for evaluation * Transformation zone component identified * DIAGNOSIS NEGATIVE FOR INTRAEPITHELIAL LESION OR MALIGNANCY * This Pap test was evaluated with the assistance of the [employer] Pap Test Imaging System. The Pap Smear is a screening test designed to aid in the detection of premalign ant and malignant conditions of the uterine cervix. It is not a diagnostic procedure a nd should not be used as the sole means of detecting cervical cancer. Both false- positive and false-negative reports do occur. Depending on your risk status, a Pap smear amanda uld be obtained and evaluated every one to three years. Final Interpretation electronically signed by: Mumtaz DARBY(ASCP) 08/09/08 1253 -- -- DEPARTMENT OF PATHOLOGY, [address] [place] [address], [place] [address] [facility] Permit #[id number] Karlo Asencio M.D. Director of Laboratories -- 41 discussed on phone. repeat alk phos 2-3 months. 42 Cholesterol Risk Levels (NIH) Recommended: under 200 mg/dl Borderline : 200-239 mg/dl High Risk : Above 240 mg/dl . 43 The National Cholesterol Education Program recommends the following ranges for LDL Cholesterol: Optimal under 100 mg/dl Near or above Optimal 100 - 129 mg/dl Borderline High 130 - 159 mg/dl High 160 - 189 mg/dl Very High above 190 mg/dl . 44 Triglyceride Risk Levels: Normal : <150 mg/dl Borderline : 150-199 mg/dl High : 200-499 mg/dl Very High : >500 mg/dl . 45 LDL/HDL Risk Ratio Levels MALE FEMALE 1/2 X Average 1.00 1.47 Average 3.55 3.22 2 X Average 6.25 5.03 3 X Average 7.99 6.14 . 46 CHOL/HDL Risk Ratio Levels MALE FEMALE 1/2 X Average 3.4 3.3 Average 5.0 4.4 2 X Average 9.5 7.0 3 X Average 24.0 11.0 . 47 Effective March 09, 2005: Please note change in reference range. . 48 mL/min/1.73m2 . Normal Function or Mild Renal Disease, if clinically at risk: >or=60 Moderately decreased: 30 - 59 Severely decreased: 15 - 29 Renal Failure: <15 . Please note that the MDRD equation requires an additional adjustment for -Americans (multiply the GFR result by 1.210). . Glomerular Filtration Rate (GFR) is estimated based on the MDRD equation, which assumes a steady state for creatinine (Rosario Int Med 139/2 137-149, 2003), as recommended by the National Kidney Disease Education Program in conjunction with the National Institutes of Health and the National Kidney Foundation. . Clinical conditions in which it may be necessary to measure GFR by using clearance methods include extremes of age and body size, severe malnutrition or obesity, diseases of skeletal muscle, paraplegia or quadriplegia, vegetarian diet, rapidly changing kidney function, and calculation of the dose of potentially toxic drugs that are excreted by the kidneys. . Procedures Description No Information Encounters Type Date Location Provider CPT E/M Dx Office Visit 04/09/2016 10:15a [place] [address] J02.9 Office Visit 11/11/2013 11:30a Main Office Jose L Simon M.D. 19931 723.1 386.10 Office Visit 11/05/2013 10:45a Main Office Jose L Simon M.D. 13499 V70.0 Office Visit 10/26/2013 9:30a Main Office KENRICK Sullivan 43558 034.0 Office Visit 10/01/2012 9:30a Main Office Jose L Simon M.D. 86434 V22.0 Office Visit 04/13/2011 3:45p Main Office KENRICK Ruth 78371 034.0 Office Visit 03/24/2011 9:45a Main Office Whitney Chavez M.D. 95076 034.0 784.0 Office Visit 06/20/2010 10:30a Main Office KENRICK Ruth 39440 463 Office Visit 12/29/2009 11:15a Main Office KENRICK Ruth 11529 461.0 Office Visit 09/24/2009 9:45a Main Office Jose L Simon M.D. 05400 373.12 Office Visit 06/22/2009 3:00p Main Office Jose L Simon M.D. 63655 007.4 626.8 790.6 Office Visit 05/03/2009 8:15a Main Office KENRICK Ruth 43449 626.8 Office Visit 01/13/2009 10:45a Main Office Jose L Simon M.D. 61800 V25.9 V18.3 790.6 Office Visit 11/18/2008 11:15a Main Office [facility] 31287 780.4 Office Visit 09/06/2008 4:30p Main Office Jessicagosia JHONATAN SoodPShayla 18150 278.00 616.10 Office Visit 08/06/2008 8:30a Main Office Nancy [facility] 88927 692.9 278.00 V72.31 V04.81 Office Visit 04/10/2008 10:30a Main Office Whitney Chavez M.D. 11354 380.10 382.02 Office Visit 04/06/2008 11:30a Main Office Jose L Simon M.D. 18294 382.9 Office Visit 04/03/2008 10:30a Main Office Jose L Simon M.D. 42931 380.22 Office Visit 01/16/2008 12:00p Main Office Jose L Simon M.D. 79525 465.9 Office Visit 01/01/2008 4:00p Main Office Jose L Simon M.D. 59432 789.01 Office Visit 05/31/2007 9:30a Main Office Whitney Chavez M.D. 32759 465.9 Office Visit 03/14/2007 4:00p Main Office Jennie Sunshine [facility] 68116 465.9 Office Visit 06/04/2006 3:30p Main Office Jennie Sunshine F.N.P.CBrandon 52605 706.2 Office Visit 04/11/2006 10:00a Main Office Jose L Simon M.D. 79967 461.0 Office Visit 03/27/2006 3:15p Main Office Jose L Simon M.D. 55504 795.09 Office Visit 03/07/2006 4:15p Main Office Jose L Simon M.D. 06232 780.4 311 Office Visit 02/07/2006 4:45p Main Office Jose L Simon M.D. 10718 780.4 Office Visit 01/01/2006 3:30p Main Office Jose L Simon M.D. 89726 311 692.9 Office Visit 11/14/2005 4:15p Main Office Jose L Simon M.D. 70348 692.9 Office Visit 11/07/2005 11:45a Main Office Jose L Simon M.D. 77483 372.30 Office Visit 10/02/2005 3:30p Main Office Jose L Simon M.D. 03700 795.09 311 Office Visit 09/17/2005 11:30a Main Office Patrice Mariee M.D. 58626 462 Office Visit 08/01/2005 4:15p Main Office Jose L Simon M.D. 74286 311 278.00 692.9 Office Visit 07/03/2005 4:30p Main Office Jose L Simon M.D. 05630 311 278.00 Office Visit 06/06/2005 4:45p Main Office Jose L Simon M.D. 12567 311 Office Visit 05/09/2005 4:15p Main Office Jose L Simon M.D. 06697 311 Office Visit 04/25/2005 3:30p Main Office Jose L Simon M.D. 93782 311 Office Visit 03/29/2005 1:15p Main Office Jose L Simon M.D. 82826 V72.31 278.00 692.9 V76.47 Plan of Care Future Appointment(s):11/18/2017 9:00 am - Isi Silveira NP at Main Vw[facility]id6111/08/2017 - Isi Silveira NPN61.0 Mastitis without abscessNew Medication:Cephalexin 500 mgDicloxacillin Sodium 500 mgComments:No acute concerns today.Discussed "wait and watch" as this could be due to increase in lately versus treatment with antibiotics for evolving mastitis.Patient prefers treatment as she is concerned about evolving mastitis. Antibiotics ordered. Discussed med, action, side effects, proper useInstructed patient to return/call if no resolution of symptoms in 48 to 72 hrs as she may require ultrasound.Also educated on new/worsening symptoms and when to call/ return.Patient stated understanding andagrees to planFollow up:schedule physical
[2017-11-21 21:15] VITALS: BP 127/86
[2017-11-21] MEDS ORDERED: Ketorolac INJ* 60 MG/2 ML VIAL IM ONE (21:24)
--- NOTE | 2017-11-22 22:26 | UC ---
Ming Duron Gabriel, scribed for Parish Rose MD on 11/21/17 at 2127 . Lower Extremity/Ankle HPI - HPI Summary HPI Summary: This patient is a 37 year old F presenting to [facility] accompanied by her with a chief complaint of right hamstring pain since 11-18-17 but has gotten worse since. The patient rates the pain 7/10 in severity. Symptoms aggravated by lifting her legs. Patient denies dysuria, trauma, numbness, and bowel/ urinary incontinence. Pt is able to bear weight and ambulate. - History of Current Complaint Chief Complaint: UCLowerExtremity Stated Complaint: LEG PAIN Hx Obtained From: Patient Hx Last Menstrual Period: 2 years ago (states that she is nursing) Onset/Duration: Lasting Days - 4, Still Present Severity Initially: Moderate Severity Currently: Moderate Pain Intensity: 7 Pain Scale Used: 0-10 Numeric Aggravating Factor(s): Other - lifting her legs Able to Bear Weight: Yes - Allergies/Home Medications Allergies/Adverse Reactions: Allergies Allergy/AdvReac Type Severity Reaction Status Date / Time sulfamethoxazole Allergy Itching Verified 11/21/17 21:08 [From Bactrim] trimethoprim [From Bactrim] Allergy Itching Verified 11/21/17 21:08 Home Medications: Home Medications Cyanocobalamin TAB* [Vitamin B12 TAB*] 500 mcg PO DAILY 11/21/17 [History Confirmed 11/21/17] Folic Acid TAB* [Folvite TAB*] 1 mg PO DAILY 11/21/17 [History Confirmed ] Naproxen Sodium [Naproxen Sodium 220 mg] 440 mg PO Q8HR PRN 11/21/17 [History Confirmed 11/21/17] Pyridoxine TAB* [Vitamin B6 TAB*] 50 mg PO DAILY 11/21/17 [History Confirmed 11/07] PMH/Surg Hx/FS Hx/Imm Hx Other History Of: Negative For: HIV, Hepatitis B, Hepatitis C - Surgical History Surgical History: None - Family History Known Family History: Positive: Cardiac Disease, Hypertension Negative: Diabetes, Renal Disease, Respiratory Disease - Social History Lives: With Family Alcohol Use: None Substance Use Type: None Smoking Status (MU): Never Smoked Tobacco - Immunization History Most Recent Influenza Vaccination: 07/11/2016 Most Recent Tetanus Shot: 06/12/2016 Most Recent Pneumonia Vaccination: unknown Review of Systems Gastrointestinal: Negative - bowel/urinary incontinence. Musculoskeletal: Other: - RLE pain All Other Systems Reviewed And Are Negative: Yes Physical Exam Triage Information Reviewed: Yes Vital Signs: Initial Vital Signs Temp 98.7 F 11/21/17 21:10 Pulse 72 11/21/17 21:10 Resp 18 11/21/17 21:10 BP 127/86 11/21/17 21:10 Pulse Ox 99 11/21/17 21:10 - Additional Comments VITAL SIGNS: Reviewed. GENERAL: Patient is a well developed and nourished F who is lying comfortable in the stretcher. Patient is not in any acute respiratory distress. HEAD AND FACE: Normocephalic EYES: PERRLA, EOMI x 2. EARS: Hearing grossly intact. MOUTH: Oropharynx within normal limits. NECK: Supple, trachea is midline, no adenopathy, no JVD, no carotid bruit. CHEST: Symmetric, no tenderness at palpation LUNGS: Clear to auscultation bilaterally. No wheezing or crackles. CVS: Regular rate and rhythm, S1 and S2 present, no murmurs or gallops appreciated. ABDOMEN: Soft, non-tender. Bowel sounds are normal. No abdominal abnormal pulsations. Back: Sciatica nerve tenderness, straight leg test positive at 60 degrees. EXTREMITIES: Full ROM in all major joints, no edema, no cyanosis or clubbing. NEURO: Alert and oriented x 3. No acute neurological deficits. Speech is normal and follows commands. SKIN: Dry and warm Lower Extremity Course/Dx - Course Course Of Treatment: This patient is a 37 year old F presenting to [facility] [place] accompanied by her with a chief complaint of right hamstring pain since 11-18-17 but has gotten worse since. The patient rates the pain 7/10 in severity. Symptoms aggravated by lifting her legs. Patient denies dysuria, trauma, numbness, and bowel/urinary incontinence. Pt is able to bear weight and ambulate. Pt was instructed to return to the urgent care or go to ER immediately if any of the symptoms return or worsens. Plan of care was discussed with the patient and pt understands and agrees. All questions were answered to patient satisfaction. There were no further complaints or concerns. Pt sent home with a prescription for robaxin and ibuprofen. Patient will be discharged with a diagnosis of sciatica and follow up from PCP. The patient is agreeable with this plan. - Differential Dx/Diagnosis Provider Diagnoses: sciatica Discharge - Discharge Plan Condition: Stable Disposition: HOME Prescriptions: Ibuprofen TAB* [Motrin TAB* 600 MG] 600 mg PO Q8H PRN #20 tab PRN Reason: Pain Methocarbamol [Robaxin-750 MG TAB] 750 mg PO TID #9 tab Patient Education Materials: Sciatica (ED), Lumbar Radiculopathy (ED) Referrals: Jose L Simon MD [Primary Care Provider] - Additional Instructions: Take medications as instructed Increase your fluid intake Return to the UC if symptoms worsen The documentation as recorded by the Ming london Gabriel accurately reflects the service I personally performed and the decisions made by , Parish Rose MD.
== END 2017-11-21 21:50 | disposition home or self-care (01) ==
LOC: UCEAST 18:02
DX: M54.30 Sciatica, unspecified side (principal); Z88.3 Allergy status to other anti-infective agents; Z88.2 Allergy status to sulfonamides
CPT/HCPCS: 96372; 99212; G0463; J1885